=== PATIENT | female | born 1940 | race Caucasian/White ===

== ENCOUNTER → 2016-04-03 | Outpatient (CLI) | payer MEDICARE ==
--- NOTE | 2016-04-04 12:07 | MM ---
Reason for exam: screening (asymptomatic). Last mammogram was performed 1 year ago. History: Patient is postmenopausal. Family history of breast cancer in maternal cousin and breast cancer in 2 other maternal cousins at age 50. Right Mammotome Panel of the right breast, January 30, 2005. Took hormonal contraceptives for 5 years. Took estrogen for 10 years beginning at age 41. Physical Findings: A clinical breast exam by your physician is recommended on an annual basis and results should be correlated with mammographic findings. MG 3D Screening Mammo W/Cad Bilateral CC and MLO view(s) were taken. Prior study comparison: March 30, 2015, bilateral MG screening mammo w CAD. February 27, 2014, bilateral MG screening mammo w CAD. February 26, 2013, bilateral digital screening mammo w/CAD. There are scattered fibroglandular densities. Stable indentation along the upper outer quadrant right breast. No significant changes when compared with prior studies. ASSESSMENT: Negative, BI-RAD 1 RECOMMENDATION: Routine screening mammogram of both breasts in 1 year.
== END | disposition home or self-care (01) ==
LOC: RADMAMWWP 10:37
PROVIDERS: ATTEND Internal Medicine Geriatric Medicine
DX: Z12.31 Encounter for screening mammogram for malignant neoplasm of breast (principal)
CPT/HCPCS: 77063; G0202

== ENCOUNTER → 2017-04-27 | Outpatient (CLI) | payer MEDICARE ==
--- NOTE | 2017-04-30 12:56 | MM ---
Reason for exam: screening (asymptomatic). Last mammogram was performed 1 year and 1 month ago. History: Patient is postmenopausal. Family history of breast cancer in maternal cousin and breast cancer in 2 other maternal cousins at age 50. Right Mammotome Panel of the right breast, January 30, 2005. Took hormonal contraceptives for 5 years. Took estrogen for 10 years beginning at age 41. Physical Findings: A clinical breast exam by your physician is recommended on an annual basis and results should be correlated with mammographic findings. MG Screening Mammo w CAD Bilateral CC and MLO view(s) were taken. Prior study comparison: April 03, 2016, bilateral MG 3d screening mammo w/cad. March 30, 2015, bilateral MG screening mammo w CAD. The breast tissue is almost entirely fat. Finding: There are typically benign indetermiante coarse calcifications in the upper outer quadrant of the right breast 9cm from the nipple with associated mass. New finding since April 03, 2016 and March 30, 2015. ASSESSMENT: Incomplete: need additional imaging evaluation, BI-RAD 0 RECOMMENDATION: Special view mammogram of the right breast. [facility] will attempt to contact patient to return for supplemental views.
== END | disposition home or self-care (01) ==
LOC: RADMAMWWP 14:17
PROVIDERS: ATTEND Internal Medicine Geriatric Medicine
DX: Z12.31 Encounter for screening mammogram for malignant neoplasm of breast (principal)
CPT/HCPCS: 77067

== ENCOUNTER → 2017-05-02 | Outpatient (CLI) | payer MEDICARE ==
--- NOTE | 2017-05-02 11:04 | MM ---
Reason for exam: additional evaluation requested from abnormal screening. Last mammogram was performed less than 1 month ago. History: Patient is postmenopausal. Family history of breast cancer in maternal cousin and breast cancer in 2 other maternal cousins at age 50. Right Mammotome Panel of the right breast, January 30, 2005. Took hormonal contraceptives for 5 years. Took estrogen for 10 years beginning at age 41. Physical Findings: Nurse did not find any significant physical abnormalities on exam. MG 3D Work Up W/Cad RT CC with magnification, ML with magnification, and ML view(s) were taken of the right breast. Prior study comparison: April 27, 2017, bilateral MG screening mammo w CAD. April 03, 2016, bilateral MG 3d screening mammo w/cad. There are scattered fibroglandular densities. There is a persistent 5mm group of calcifications in the upper outer quadrant at middle depth, new from the prior other than a solitary round dystrophic appearing calcifications. This is near the site of prior biopsy site and could be fat necrosis or neoplasm. These results were verbally communicated with the patient and result sheet given to the patient on 05/02/17. ASSESSMENT: Suspicious, BI-RAD 4 RECOMMENDATION: Stereotactic core biopsy of the right breast. Called Dr. Suarez with mammographic findings and has scheduled an appointment for the patient for 05/03/17 at 4:[address] Phelan. PRELIMINARY REPORT CALLED AND FAXED TO DR. PHELAN ON 05/02/17.
== END | disposition home or self-care (01) ==
LOC: RADMAMWWP 08:30
PROVIDERS: ATTEND Internal Medicine Geriatric Medicine
DX: R92.8 Other abnormal and inconclusive findings on diagnostic imaging of breast (principal)
CPT/HCPCS: 77065; G0279

== ENCOUNTER → 2017-05-10 | Day surgery (SDC) | payer MEDICARE ==
[2017-05-10 09:23] VITALS: RESP 12
[2017-05-10 10:53] VITALS: BP 110/67; PULSE 70; TEMP 97.8
--- NOTE | 2017-05-10 11:10 | MM ---
EXAMINATION TYPE: MG stereo VAD BX RT DATE OF EXAM: 05/10/2017 COMPARISON: Prior mammogram May 02, 2017 and older studies. CLINICAL HISTORY: Abnormal mammogram. History of benign excisional biopsy right breast. TECHNIQUE: Stereotactic guided core biopsy of right breast with clip placement and follow-up two-view mammogram. FINDINGS: The procedure of stereotactic guided core biopsy was explained to the patient. Benefits, alternatives, and risks were discussed. An informed consent was then obtained. [facility] pathway for biopsy was chosen. Shortness pathway was cranial approach. I performed the localization, then performed the remainder of the procedure. Overlying skin is cleansed with Betadine. Lidocaine with bicarbonate is used as anesthetic into the skin and deeper tissue. Lidocaine with epinephrine is used as anesthetic into the deeper tissue during sampling. A vacuum assisted biopsy gun was used to obtain 6 multiple core samples. The patient tolerated the procedure well without any immediate complication. The patient was kept in the radiology department for short stay after the procedure and then discharged home in stable condition. Targeted calcifications are identified in specimen mammogram. Post biopsy mammogram shows the clip to appear in satisfactory position relative to the targeted area of concern on the preprocedure images. Some residual calcifications are present near clip. IMPRESSION: SUCCESSFUL, UNCOMPLICATED STEREOTACTIC GUIDED CORE BIOPSY OF AREA OF CONCERN IN THE RIGHT BREAST, FULL PATHOLOGY RESULTS TO FOLLOW. Low index of suspicion noted at time of procedure. Pathology Results: Benign RIGHT BREAST, SITE NOT OTHERWISE SPECIFIED (CORE BIOPSIES): FAT NECROSIS WITH DYSTROPHIC MICROCALCIFICATIONS, WITH ASSOCIATED NON-PROLIFERATIVE FIBROCYSTIC CHANGES. Recommendation Follow up mammogram of the right breast in 6 months. YULISSA
== END | disposition home or self-care (01) ==
LOC: RADUSWWP 08:55
PROVIDERS: ATTEND Surgery
DX: N64.1 Fat necrosis of breast (principal); R92.0 Mammographic microcalcification found on diagnostic imaging of breast
CPT/HCPCS: 88305; 19081; A4648; J2001

== ENCOUNTER → 2020-07-09 | Outpatient (CLI) | payer MEDICARE ==
--- NOTE | 2020-07-13 13:30 | MM ---
Reason for exam: screening (asymptomatic). Last mammogram was performed 3 years and 2 months ago. History: Patient is postmenopausal. Family history of breast cancer in maternal cousin and breast cancer in 2 other maternal cousins at age 50. Benign MG stereo VAD BX RT of the right breast, May 10, 2017. Right Mammotome Panel of the right breast, January 30, 2005. Took hormonal contraceptives for 5 years. Took estrogen for 10 years beginning at age 41. Physical Findings: A clinical breast exam by your physician is recommended on an annual basis and results should be correlated with mammographic findings. MG 3D Screening Mammo W/Cad Bilateral CC and MLO view(s) were taken. Prior study comparison: May 02, 2017, right breast MG 3d work up w/cad RT. April 27, 2017, bilateral MG screening mammo w CAD. There are scattered fibroglandular densities. Benign appearing bilateral calcifications. ASSESSMENT: Benign, BI-RAD 2 RECOMMENDATION: Routine screening mammogram of both breasts in 1 year.
== END | disposition home or self-care (01) ==
LOC: RADMAMWWP 15:17
PROVIDERS: ATTEND Internal Medicine Geriatric Medicine
DX: Z12.31 Encounter for screening mammogram for malignant neoplasm of breast (principal); Z80.3 Family history of malignant neoplasm of breast
CPT/HCPCS: 77063; 77067